=== PATIENT | male | born 1980 | race Native Hawaiian/Other Pacific Islander ===

== ENCOUNTER 2017-06-21 16:01 | Emergency (ER) | payer OTHER ==
[~2017-06-21] VITALS: Ht 190.5 cm; Wt 135.8 kg
[2017-06-21] MEDS ORDERED: PREDNISONE20 MG PO (18:18)
[2017-06-21] MEDS ORDERED: TESSALON PERLE100 MG PO (18:18)
[2017-06-21 18:35] VITALS: BP 168/83
== END 2017-06-21 18:36 | disposition home or self-care (01) ==
LOC: EME 16:01
DX: J40 Bronchitis, not specified as acute or chronic (principal); K21.9 Gastro-esophageal reflux disease without esophagitis; I10 Essential (primary) hypertension
CPT/HCPCS: 71046; 99281; 99283